=== PATIENT | female | born 1995 ===

== ENCOUNTER 2017-12-13 10:23 | Emergency (ER) | payer MEDICAID ==
[2017-12-13 10:23] VITALS: BMI 22.8
[2017-12-13 10:34] VITALS: O2SAT 98
--- NOTE | 2017-12-13 11:01 | C.PDOC ---
History Of Present Illness 22-year-old female presents to the ED complaining of pelvic pain since yesterday. Patient is approximately 10 weeks . LMP was 09/29/17. Pain is associated with vaginal spotting. She denies any associated dysuria, frequency, urgency, fever, or chills. PELVIC PAIN SINCE YEST. LMP 09/29 . +VAG SPOTTING. NO UTI SX. EXAM NEG Time Seen by Provider: 12/13/17 10:26 Chief Complaint (Nursing): Abdominal Pain History Per: Patient History/Exam Limitations: no limitations Onset/Duration Of Symptoms: Days Current Symptoms Are (Timing): Still Present Associated Symptoms: denies: Urinary Symptoms Abnormal Vaginal Bleeding: Yes Last Menstral Period: 09/29/17 : 2 Para: 1 Past Medical History Reviewed: Historical Data, Nursing Documentation, Vital Signs Vital Signs: Last Vital Signs Temp 98.1 F 12/13/17 10:25 Pulse 84 12/13/17 10:25 Resp 18 12/13/17 10:25 BP 107/64 12/13/17 10:25 Pulse Ox 98 12/13/17 12:02 - Medical History PMH: Diabetes Surgical History: No Surg Hx Family History: States: Unknown Family Hx - Social History Hx Tobacco Use: No Hx Alcohol Use: No Hx Substance Use: No - Immunization History Hx Tetanus Toxoid Vaccination: No Hx Influenza Vaccination: No Hx Pneumococcal Vaccination: No Review Of Systems Except As Marked, All Systems Reviewed And Found Negative. Constitutional: Negative for: Fever, Chills Genitourinary: Positive for: Vaginal Bleeding, Pelvic Pain. Negative for: Dysuria, Frequency, Incontinence, Hematuria Physical Exam - Physical Exam Appears: Non-toxic, No Acute Distress Skin: Normal Color, Warm, Dry Head: Atraumatic, Normacephalic Eye(s): bilateral: Normal Inspection, PERRL, EOMI Nose: Normal Oral Mucosa: Moist Neck: Normal ROM, Supple Chest: Symmetrical Cardiovascular: Rhythm Regular, No Murmur Respiratory: Normal Breath Sounds, No Accessory Muscle Use, Other (No acute respiratory distress) Gastrointestinal/Abdominal: Normal Exam, Soft, No Tenderness, No Guarding, No Rebound Back: Normal Inspection, No CVA Tenderness, No Vertebral Tenderness Extremity: Bilateral: Atraumatic, Normal Color And Temperature, Normal ROM Pulses: Left Radial: Normal, Right Radial: Normal Neurological/Psych: Oriented x3, Normal Speech Gait: Steady ED Course And Treatment - Laboratory Results Result Diagrams: 12/13/17 11:19 12/13/17 11:19 O2 Sat by Pulse Oximetry: 98 (RA) Pulse Ox Interpretation: Normal Progress - Data Reviewed Data Reviewed: Lab, Diagnostic imaging Medical Decision Making Medical Decision Making: Initial Impression: 22 year old with pelvic pain and vaginal spotting Differential Diagnosis includes but is not limited to: threatened miscarriage, r /o ectopic Initial Plan: --Labs --Transvaginal US Disposition Counseled Patient/Family Regarding: Studies Performed, Diagnosis, Need For Followup - Disposition Referrals: YOUR,OBGYN [Other] Disposition: HOME/ ROUTINE Disposition Time: 13:05 Condition: GOOD Instructions: Threatened Miscarriage (DC) Forms: [facility] ([place]), Work Excuse - Clinical Impression Clinical Impression: Threatened miscarriage - Scribe Statement The provider has reviewed the documentation as recorded by the Scribe (Cindy Quintero) Provider Attestation: All medical record entries made by the Scribe were at my direction and personally dictated by me. I have reviewed the chart and agree that the record accurately reflects my personal performance of the history, physical exam, medical decision making, and the department course for this patient. I have also personally directed, reviewed, and agree with the discharge instructions and disposition.
[2017-12-13 11:23] LABS: SQUAMOUS EPITHIAL 3 /hpf (0-5); URINE BILIRUBIN NEGATIVE (NEGATIVE); URINE BLOOD NEGATIVE (NEGATIVE); URINE CLARITY Clear (Clear); URINE COLOR Yellow (YELLOW); URINE GLUCOSE (UA) NORMAL (Normal); URINE LEUKOCYTE ESTERASE NEG Leu/uL (Negative); URINE PROTEIN NEGATIVE (NEGATIVE); URINE UROBILINOGEN NORMAL mg/dL (0.2-1.0)
[2017-12-13 11:23] LABS: BASO % 0.4 % (0.0-2.0); EOS # 0.1 K/uL (0.0-0.7); EOS % 0.5 % (0.0-4.0); HEMOGLOBIN 12.5 g/dL (11.0-16.0); LYMPH # 2.9 K/uL (1.0-4.3); LYMPH % 29.7 % (20.0-40.0); MEAN CELL VOLUME 81.7 fL (81.0-99.0); MEAN CORPUSCULAR HEMOGLOBIN 28.3 pg (27.0-31.0); MEAN CORPUSCULAR HGB CONC 34.7 g/dL (33.0-37.0); MEAN PLATELET VOLUME 7.4 fL (7.2-11.7); MONO # 0.7 K/uL (0.0-0.8); MONO % 7.6 % (0.0-10.0); NEUT # 6.1 K/uL (1.8-7.0); NEUT % 61.8 % (50.0-75.0); RBC 4.4 Mil/uL (3.80-5.20); RED CELL DISTRIBUTION WIDTH 14.8 % (11.5-14.5); WHITE BLOOD COUNT 9.8 K/uL (4.8-10.8)
[2017-12-13 11:34] LABS: BLOOD UREA NITROGEN 8 mg/dL (7-17); GFR AFRICAN-AMERICAN > 60; GFR NON-AFRICAN AMERICAN > 60
--- NOTE | 2017-12-13 12:46 | US ---
PROCEDURE: OB Pelvic Ultrasound HISTORY: PELVIC PAIN VB COMPARISON: None available. FINDINGS: UTERUS: Single Live intrauterine gestation. CRL equivalent to 10 weeks 6 days gestatioin Gestational sac diameter equivalent to 10 weeks 0 days gestation age (Ultrasound estimated): 10 weeks 3 days Date of delivery (Ultrasound estimated) : 07/08/2018 Heart rate: 161 bpm. Tiff-gestational hemorrhage: None. Uterus measures 14.5 x 6.6 x 8.2 cm. No mass CERVIX: Long and closed. No cervical abnormality seen. RIGHT OVARY: Measures 3.2 x 1.6 x 2.8 cm. No mass. Normal flow. LEFT OVARY: Measures 3.3 x 2.4 x 3.2 cm. No mass. Normal flow. FREE FLUID: None. OTHER FINDINGS: None. IMPRESSION: Single live intrauterine gestation of approximately 10 weeks 3 days gestational age. No gross abnormality of the fetus or gestational sac. Unremarkable ovaries.
[2017-12-13 13:14] VITALS: BP 104/57; PULSE 78; RESP 16; TEMP 98.4
== END 2017-12-13 13:31 | disposition home or self-care (01) ==
LOC: C.ER 10:23
DX: O20.0 Threatened abortion (principal); Z3A.10 10 weeks gestation of pregnancy

== ENCOUNTER 2018-06-22 01:13 | Inpatient (IN) | payer MEDICAID ==
[2018-06-22 01:59] LABS: SQUAMOUS EPITHIAL 1 /hpf (0-5); URINE BILIRUBIN NEGATIVE (NEGATIVE); URINE BLOOD NEGATIVE (NEGATIVE); URINE CLARITY Clear (Clear); URINE COLOR Straw (YELLOW); URINE GLUCOSE (UA) NORMAL (Normal); URINE LEUKOCYTE ESTERASE NEG Leu/uL (Negative); URINE PROTEIN NEGATIVE (NEGATIVE); URINE UROBILINOGEN NORMAL mg/dL (0.2-1.0)
--- NOTE | 2018-06-22 06:33 | OBHP ---
Datetime: 06/22/2018 06:24 IP Adm Impression: Term, intrauterine ; No Active Labor; Intact Membranes IP Admit Plan: Observation/Evaluation Admit Comment, IP Provider: 22 yo female with an IUP at 38 weeks and presented with c/o of Contractions without LOF, VB or VD. Admits to uneventful PNC. PMHx and PSHx Negative NKDA Social Hx negative x 3 Medications PNV A/P Term Irregular contractions but + cervical change UA done and negative GBS + and will give propylactic Antibiotics Pt requested to ambulate for a while and be recheck NST reactive Pelvic Type - PN: Adequate Extremities - PN: Normal Abdomen - PN: Normal Back - PN: Normal Breast - PN: Not Done Lungs - PN: Normal Heart - PN: Normal Thyroid - PN: Normal Neurologic - PN: Normal HEENT - PN: Normal General - PN: Normal Presentation-Admit: Vertex FHR - Baseline A Provider: 140 Membranes, Provider: Intact Contraction Comments Provider: 2-4 mins Gestation - Est Wks by US: 38.0 IP Hx Assessment: PNC records reviewed EGA AdmitDate IP: 38.0 Vital Signs Provider: Reviewed; Within Normal Limits IP Chief Complaint: Uterine contractions; Maternal discomfort; evaluation NICHD Variability Prov Fetus A: Moderate 6-25bpm NICHD Accel Fetus A IP Provider: 10X10 NICHD Decel Fetus A IP Provider: None Dilatation, Provider: 3 Effacement, Provider: 70 Station, Provider: -2 Genitourinary Exam: Normal DTRs - PN: Normal
[2018-06-22] MEDS ORDERED: Penicillin G 5 Million Unit Vial IVPB ONE ×2 (08:39→09:07)
[2018-06-22] MEDS ORDERED: Lactated Ringer's 1,000 ML IV ONE (08:39)
[2018-06-22] MEDS ORDERED: Oxytocin 30 UNIT 30 UNITS/500 ML BAG IV ONE ×2 (08:39→12:27)
[2018-06-22] MEDS ORDERED: Lactated Ringer's 1,000 ML IV SCH (08:45)
[2018-06-22 09:22] LABS: BASO % 0.4 % (0.0-2.0); EOS % 0.5 % (0.0-4.0); HEMOGLOBIN 11.4 g/dL (11.0-16.0); LYMPH # 2.1 K/uL (1.0-4.3); LYMPH % 21.7 % (20.0-40.0); MEAN CORPUSCULAR HGB CONC 33.4 g/dL (33.0-37.0); MEAN PLATELET VOLUME 8.5 fL (7.2-11.7); MONO # 0.9 K/uL (0.0-0.8); MONO % 9.2 % (0.0-10.0); NEUT # 6.7 K/uL (1.8-7.0); NEUT % 68.2 % (50.0-75.0); NRBC % 0.1 % (0.0-2.0); RBC 4.38 Mil/uL (3.80-5.20); RED CELL DISTRIBUTION WIDTH 13.8 % (11.5-14.5); WHITE BLOOD COUNT 9.8 K/uL (4.8-10.8)
[2018-06-22 09:28] LABS: MEAN CELL VOLUME 77.9 fL (81.0-99.0)
[2018-06-22 09:35] LABS: ALBUMIN 3.5 g/dL (3.5-5.0); ALT/SGPT 13 U/L (9-52); AST/SGOT 19 U/L (14-36); BLOOD UREA NITROGEN 5 mg/dL (7-17); CALCIUM 8.8 mg/dl (8.6-10.4); GFR NON-AFRICAN AMERICAN > 60
[2018-06-22] MEDS ORDERED: Bupivacaine HCl/FentaNYL Cit 100 ML EPI ONE (13:51)
[2018-06-22] MEDS ORDERED: Oxytocin 10 Units/ml Inj ONE (18:35)
[2018-06-22] MEDS ORDERED: Oxycodone/Acetaminophen 5/325 mg Tab PO PRN (19:07)
--- NOTE | 2018-06-22 19:07 | OBDS ---
DELIVERY PERSONNEL Delivery Doctor: Abdi Love MD Youth Manager: Yue Mancia RN Anesthesiologist: Dr Wolf MATERNAL INFORMATION Delivery Anesthesia: Epidural Medications in Delivery: 50 units of pitocin in 500 ml NS, 250 mcg hemabate Estimated Blood Loss (ml): 1000 Placenta Cultured: Yes Maternal Complications: None RN Comments: liveborn male 9/9, ebl 1000, 20 units oxytocin added to 30 units in 500 NS , 250 mcg hemabate mcg given Provider Comments: Vaginal delivery of live male infant, ZACHARIAH position, over intact perineum, infant placed on patient's abdomen. Delayed cord clamping x 1 minute. Umbilical cord doubly clamped and cut. Soon thereafter patient c/o feeling dizzy and appeared pale, Head of bed lowered and IVFs opened. Pl acenta then delivered with gush of blood. Uterine exploration performed, uterus boggy. 20 units of pi tocin added for a toatl of 40 units. Hemabate 250 micrograms administered IM. BP noted 78/34. Bimanua l massage performed. Bladder catheterized 50 mL clear urine obtained. Subsequent BPs obtained with in cremental increase, 111/70 at time of this writing. Cervix, vagina, perineum inspected - no lacerations. and mother bonding; both in stable condition. Patient remained awake and responsive throughout. EBL 1,000mL Weight 6lb 2oz 's 9/9 LABOR SUMMARY EDC: 07/06/2018 00:00 No. Babies in Womb: 1 Labor Anesthesia: Epidural LABOR INFORMATION Onset of Labor: 06/22/2018 15:47 Complete Dilatation: 06/22/2018 17:44 Oxytocin: Augmentation Group B Beta Strep: Positive (Annotations: 06/07/2018) Antibiotics # of Doses: 3 Antibiotics Time of Last Dose: 1706 Steroids Given: None Reason Steroids Not Administered: Not Applicable MEMBRANES Membranes Rupture Method: Artificial Rupture of Membranes: 06/22/2018 13:05 Length of Rupture (hrs): 5.33 Amniotic Fluid Color: Clear Amniotic Fluid Amount: Moderate Amniotic Fluid Odor: None STAGES OF LABOR Stage 1 hrs: 1 Stage 1 min: 57 Stage 2 hrs: 0 Stage 2 min: 41 Stage 3 hrs: 0 Stage 3 min: 5 Total Time in Labor hrs: 2 Total Time in Labor min: 43 VAGINAL DELIVERY Episiotomy: None Laceration Extension: N/A Laceration Type: None Laceration Repair: Not Applicable Initial Vag Sponge Count: 11 Final Vag Sponge Count: 11 Sponge Count Correct: N/A Sharps Count Correct: N/A Count Comment: Correct BABY A INFORMATION Infant Delivery Date/Time: 06/22/2018 18:25 Method of Delivery: Vaginal Born in Route : No : N/A Forceps: N/A Vacuum Extraction: N/A Shoulder Dystocia : No SHOULDER DYSTOCIA BABY A Delivery Date/Time: 06/22/2018 18:25 PRESENTATION/POSITION BABY A Presentation: Cephalic Cephalic Presentation: Vertex Vertex Position: Left Occipital Anterior Breech Presentation: N/A PLACENTA INFORMATION BABY A Placenta Delivery Time : 06/22/2018 18:30 Placenta Method of Delivery: Expressed Placenta Status: Delivered SCORES BABY A Heart Rate 1 min: >100 bpm Resp Effort 1 min: Good Cry Reflex Irritability 1 min: Cough or Sneeze or Pulls Away Muscle Tone 1 min: Active Motion Color 1 min: Body [place], Extremities Blue Resuscitation Effort 1 min: Tactile Stimulation SCORE 1 MIN: 9 Heart Rate 5 min: >100 bpm Resp Effort 5 min: Good Cry Reflex Irritability 5 min: Cough or Sneeze or Pulls Away Muscle Tone 5 min: Active Motion Color 5 min: Body [place], Extremities Blue Resuscitation Effort 5 min: N/A SCORE 5 MIN: 9 INFANT INFORMATION BABY A Gestational Age at Delivery: 38.0 Gestational Status: Term Infant Outcome : Liveborn Condition : Stable Infant Sex: Male IDENTIFICATION/MEDS BABY A ID Band Number: [id number] ID Band Location: Left Leg; Left Arm Sensor Applied: Yes Sensor Number: [id number] Sensor Location : Cord Clamp Vitamin K Given : Not Given Erythromycin Given: Not Given WEIGHT/LENGTH BABY A Birthweight (gms): 2780 Weight (lb): 6 Infant Weight (oz): 2 Infant Length Inches: 19.50 Length cms: 49.5 CORD INFORMATION BABY A No. Cord Vessels: 3 Nuchal Cord : N/A Infant Suction: Mouth; Nose ASSESSMENT BABY A Infant Complications: None Physical Findings at Delivery: Within Normal Limits Infant Respirations: Appears Normal Paper Reclaiming Machine Operator/ALS Called : No Infant Care By: F ha RN Transferred To: Remains with Mother BABY B INFORMATION Infant Delivery Date/Time: 06/22/2018 18:25 SHOULDER DYSTOCIA BABY B Delivery Date/Time: 06/22/2018 18:25
[2018-06-22 23:21] LABS: LYMPH # 1.7 K/uL (1.0-4.3); LYMPH % 9.7 % (20.0-40.0); MEAN CORPUSCULAR HEMOGLOBIN 25.7 pg (27.0-31.0)
[2018-06-22 23:31] LABS: BASO % 0.2 % (0.0-2.0); EOS % 0.1 % (0.0-4.0); MEAN CORPUSCULAR HGB CONC 33.4 g/dL (33.0-37.0); MEAN PLATELET VOLUME 8.5 fL (7.2-11.7); MONO # 1.1 K/uL (0.0-0.8); MONO % 6.3 % (0.0-10.0); NEUT # 14.9 K/uL (1.8-7.0); NEUT % 83.7 % (50.0-75.0); PLATELET COUNT 214 K/uL (130-400); RBC 3.88 Mil/uL (3.80-5.20); RED CELL DISTRIBUTION WIDTH 13.8 % (11.5-14.5); WHITE BLOOD COUNT 17.8 K/uL (4.8-10.8)
[2018-06-23 00:39] LABS: ANISOCYTOSIS SLIGHT; LYMPHOCYTE 8 % (20-40); MONOCYTE 7 % (0-10); NEUTROPHIL 85 % (50-75); PLATELET ESTIMATE NORMAL (NORMAL); POIKILOCYTOSIS SLIGHT; TOTAL CELLS COUNTED 100
[2018-06-23 05:42] LABS: BASO # 0.1 K/uL (0.0-0.2); BASO % 0.8 % (0.0-2.0); EOS # 0.1 K/uL (0.0-0.7); EOS % 0.7 % (0.0-4.0); HEMOGLOBIN 8.8 g/dL (11.0-16.0); LYMPH # 2.8 K/uL (1.0-4.3); LYMPH % 18.8 % (20.0-40.0); MEAN CELL VOLUME 77.5 fL (81.0-99.0); MEAN CORPUSCULAR HEMOGLOBIN 25.5 pg (27.0-31.0); MEAN CORPUSCULAR HGB CONC 32.9 g/dL (33.0-37.0); MEAN PLATELET VOLUME 8.3 fL (7.2-11.7); MONO # 1.5 K/uL (0.0-0.8); MONO % 9.7 % (0.0-10.0); NEUT # 10.6 K/uL (1.8-7.0); NRBC % 0.1 % (0.0-2.0); RBC 3.45 Mil/uL (3.80-5.20); RED CELL DISTRIBUTION WIDTH 13.5 % (11.5-14.5); WHITE BLOOD COUNT 15.1 K/uL (4.8-10.8)
[2018-06-23] MEDS: Multiple Vitamins Tab PO SCH (10:20)
[2018-06-24 00:50] VITALS: O2SAT 98
--- NOTE | 2018-06-24 08:17 | OBPPN ---
Datetime: 06/23/2018 07:00 PP Nausea Prov: Denies PP Flatus Prov: Yes PP BM Prov: Yes PP Heart Prov: Normal PP Lungs Prov: Normal PP Abdomen/Uterus Prov: Normal PP Extremities Prov: Normal PP Progress Prov: Abnormal PP Comments Phys Exam Prov: Abdomen: non-distended, non-tender. Uterine fundus 3 finger breadths bel ow the the umbilicus. : Stanton in place. 300cc of clear yellow urine in stanton bag. PP Impression Prov: Normal progression PP Plan Prov: Continue present management PP Progress Note Prov: 22 year old female PPD #1 status post SNVD complicated by post hemorrhage with EBL of 1000 and controlled with 250 mcg of hemobate and 40 units of pitocin. Patien t states she feels well today. She has no pain and has not needed pain medication this morning. She r eports lochia rubra, using 3 pads yesterday and one pad overnight. She is tolerating her diet. States she has been drinking some water. She has walked to the bathroom. Reports one episode of diarrhea la st night. Patient is attempting to breast feed, but also bottle feeding. She denies fever, chills, li ghtheadedness, dizziness, weakness, chest pain, shortness of breath, nausea and vomiting. A_P: 22 year old female PPD #1 status post SNVD complicated by post hemorrhage with EBL of 1000 and controlled with 250 mcg of hemobate and 40 units of pitocin. -Patient stable for transfer to maternity -H/H 8.8/26.7 from 11.4/34.1, acute anemia secondary to acute blood loss, asymptomatic. Start Ferr ous Sulfate 325mg daily -Encourage adequate hydration -Encourage ambulation -Encourage breast feeding -Hold stool softeners for watery bowel movement -Pain management as needed Case discussed with attending physician, Dr. Bentley. Daphne Zheng, PGY-1 IP PP Procedures: None
--- NOTE | 2018-06-24 08:39 | OBPPN ---
Datetime: 06/24/2018 08:35 PP Pain Prov: Within normal limits PP Breasts Prov: Normal PP Abdomen/Uterus Prov: Normal PP Lochia Prov: Normal PP Vulva/Perineum Prov: Normal PP Progress Prov: Normal PP Impression Prov: Normal progression PP Plan Prov: Discharge PP Progress Note Prov: A/P: 22yo s/p NSD complicated by PPH EBL: 1L VSS- Pt doing well Acute blood loss anemia- continue ferrous sulfate BID/ascorbic acid - repeat CBC pending this AM to trend - Pt denies chest pain, SOB, dizziness lochia WNL Anticipate DC home today pending CBC result IP PP Procedures: None Vital Signs Provider Details PP: firm fundus 1 fingerbreath below umbilicus
[2018-06-24] MEDS: Multiple Vitamins Tab PO SCH (09:18)
[2018-06-24 09:36] VITALS: RESP 18
[2018-06-24 11:17] LABS: BASO % 0.3 % (0.0-2.0); EOS # 0.2 K/uL (0.0-0.7); EOS % 1.8 % (0.0-4.0); HEMOGLOBIN 9.1 g/dL (11.0-16.0); LYMPH # 2.4 K/uL (1.0-4.3); LYMPH % 22.3 % (20.0-40.0); MEAN CELL VOLUME 77.3 fL (81.0-99.0); MEAN CORPUSCULAR HEMOGLOBIN 25.7 pg (27.0-31.0); MEAN CORPUSCULAR HGB CONC 33.2 g/dL (33.0-37.0); MEAN PLATELET VOLUME 8.3 fL (7.2-11.7); MONO # 0.9 K/uL (0.0-0.8); MONO % 8.4 % (0.0-10.0); NEUT # 7.1 K/uL (1.8-7.0); NEUT % 67.2 % (50.0-75.0); RBC 3.53 Mil/uL (3.80-5.20); RED CELL DISTRIBUTION WIDTH 13.9 % (11.5-14.5); WHITE BLOOD COUNT 10.6 K/uL (4.8-10.8)
[2018-06-24] MEDS ORDERED: Influenza Vaccine 60 MCG/0.5 ML SYR (3 yr & up) IM ONE (11:46)
--- NOTE | 2018-06-24 14:10 | OBDCSUM ---
Datetime: 06/24/2018 11:49 Discharged to, Provider: Home Follow up at, Provider: [facility] Disch Instr Activity: Normal activity; May Shower Disch Instr Diet: Regular Discharge Diet restrict Prov: none Discharge Instructions, Provider: Routine instructions given Discharge Diagnosis, Provider: Term Delivered Discharge Time: 06/24/2018 15:00 Follow up in weeks, Provider: 6 weeks Disch Referrals: None Disch Activity Restrictions: No exercising; No lifting; No sexual activity; Nothing in vagina - Inte rcourse, tampons, douche Discharge Comment, Provider: 22yo admitted for labor underwent an uncomplicated cours e. She had NSD complicated by PPH EBL: 1000cc resolved with uterotonics. Serial CBCs stable. Pt denie s dizziness, shortness of breath and chest pain. Live male infant apgars 9/9. Discharge home today with follow up in 6 weeks.
[2018-06-24 18:58] VITALS: BP 116/62; PULSE 98; TEMP 98
[2018-06-25] MEDS ORDERED: Prenatal Multivit/Folic Acid/Iron Tab PO SCH (10:00)
== END 2018-06-24 14:57 | disposition home or self-care (01) | DRG 372 ==
LOC: C.EROB 01:13 → C.4D 08:30 → C.4M 06-23 08:59
PROVIDERS: ADMIT Obstetrics & Gynecology; ATTEND Obstetrics & Gynecology
PROC: 10E0XZZ Delivery of Products of Conception, External Approach (ICD-10-PCS; principal; 2018-06-22)
DX: O99.824 Streptococcus B carrier state complicating childbirth (principal); O72.1 Other immediate postpartum hemorrhage; Z3A.38 38 weeks gestation of pregnancy; O66.0 Obstructed labor due to shoulder dystocia; Z37.0 Single live birth